=== PATIENT | female | born 1975 | race Two or more races ===

== ENCOUNTER 2019-04-15 23:29 | Emergency (ER) | payer OTHER | END 2019-04-15 23:44 | disposition home or self-care (01) | LOC: ER 23:29 | DX: S93.492A Sprain of other ligament of left ankle, initial encounter (principal); X50.3XXA Overexertion from repetitive movements, initial encounter; Y93.89 Activity, other specified; Y92.89 Other specified places as the place of occurrence of the external cause; Y99.8 Other external cause status ==